=== PATIENT | female | born 1970 | race Caucasian/White ===

== ENCOUNTER 2019-05-02 09:43 | Inpatient (IN) | payer MEDICARE, BC ==
[~2019-05-02] VITALS: Ht 175.3 cm; Wt 101.0 kg
[~2019-05-02 09:43] MED LIST: ABAT250V SQ; ABATACEPT; ACET325 PO; AMLO5 PO; ASPI81EC PO; ATOR80 PO; Aspir 8181 MG PO; BYDUREON; BYDUREON SQ; DIAZ5 PO; DOCU100 PO; DRON5 PO; DULO60 PO; EXEN10PI SQ; EZET10 PO; FLUC200 PO; FURO40 PO; HALO5 PO; HYDPAM25 PO; HYDPAM50 PO; INS50/50I SC; INSULANI SC; INSULANI SUBQ; ISOMON30 PO; Imdur-ER60 MG; LIDO5TP TOP; LISI5 PO; LORA1 PO; METF500 PO; METO100ER PO; METO50ER PO; METO5A PO; NICO21TP TOP; NITR.4TPA TOP; NITRSPRAY SL; OMEP20ER PO; ONDA4ODT MM; ORENCIA; OXYC10ER PO; OXYC10TA19 PO; OXYC15ER PO; OXYC30ER PO; POLY17UD PO; PRAV20 PO; PREG75 PO; PROM12.5S PR; RANO500T PO; SENN187 PO; TRAZ100 PO; VARE1 PO
[2019-05-02 10:59] LABS: BASOPHILS ABSOLUTE AUTO 0.19 K/mm3 (0.00-0.23); BASOPHILS PERCENT AUTO 1 % (0-2); EOSINOPHILS ABSOLUTE AUTO 0.15 K/mm3 (0.00-0.68); EOSINOPHILS PERCENT AUTO 1 % (0-6); Hematocrit 40.2 % (33.0-51.0); Hemoglobin 13.5 g/dL (11.5-16.0); IMMATURE GRAN ABSOLUTE AUTO 0.27 K/mm3 (0.00-0.10); IMMATURE GRAN PERCENT AUTO 2 % (0-1); LYMPHOCYTES ABSOLUTE AUTO 1.09 K/mm3 (0.84-5.20); LYMPHOCYTES PERCENT AUTO 6 % (21-46); MONOCYTES ABSOLUTE AUTO 0.94 K/mm3 (0.16-1.47); MONOCYTES PERCENT AUTO 6 % (4-13); Mean Corpuscular HGB 30.2 pg (26.0-34.0); Mean Corpuscular HGB Conc 33.6 g/dL (31.5-36.5); Mean Corpuscular Volume 90 fL (80-100); Mean Platelet Volume 10.8 fL (9.1-12.4); NEUTROPHILS ABSOLUTE AUTO 14.31 K/mm3 (1.96-9.15); NEUTROPHILS PERCENT AUTO 85 % (41-73); Platelet Count 399 K/mm3 (150-400); RDW Coefficient Variation 12.7 % (11.7-14.2); RDW Standard Deviation 42.5 fL (35.1-46.3); Red Blood Cell Count 4.47 M/mm3 (3.80-5.20); White Blood Cell Count 16.95 K/mm3 (4.00-11.30)
[2019-05-02] MEDS ORDERED: TOLT4 PO (11:32)
[2019-05-02] MEDS ORDERED: ACTIVE-Q200 MG PO (11:32)
[2019-05-02] MEDS ORDERED: Cartia Xt180 MG PO (11:33)
[2019-05-02] MEDS ORDERED: MORPHINE SULFAT15 M1 PO (11:34)
[2019-05-02] MEDS ORDERED: FUROSEMIDE20 MG PO (11:35)
[2019-05-02] MEDS ORDERED: Klor-Con 1010 MEQ PO (11:36)
[2019-05-02] MEDS ORDERED: Paxil20 MG PO (11:37)
[2019-05-02] MEDS ORDERED: HYDSUL200 PO (11:38)
[2019-05-02 11:48] LABS: Bun/Creatinine Ratio 26.7 (12.0-20.0); Creatinine, Blood 1.16 mg/dL (0.40-1.00); Potassium, Blood 5.8 mmol/L (3.5-5.5)
[2019-05-02 13:25] LABS: Source, Urine Clean Catch
[2019-05-02 13:28] LABS: Bilirubin, Urine Neg (Neg); Blood, Urine Neg (Neg); Glucose Qualitative, Urine 4+ (Neg); Ketones, Urine 2+ (Neg); Leukocyte Esterase, Urine Neg (Neg); Nitrite, Urine Neg (Neg); Protein, Urine Neg (Neg); Urobilinogen, Urine NORM (Normal)
[2019-05-02 13:36] LABS: Appearance, Urine Clear (Clear); Color, Urine Yellow (P-Yellow)
[2019-05-02 14:30] LABS: Glucose, Blood 563 mg/dL (70-99)
--- NOTE | 2019-05-02 17:39 | NUR ---
ADMISSION / SHIFT SUMMARY: REPORT RECEIVED FROM ROZINA YEPEZ IN ED. PT ARRIVED TO UNIT AT APPROX 1610. PT ABLE TO STAND & TX FROM GURNEY TO BED W/O DIFFICULTY. PT HYPOTENSIVE ON ARRIVAL, SBP 80s. STS BP "NORMAL" FOR HER. PT ON RA W/ O2 SATS > 92%. INSULIN DRIP INFUSING AT RATE OF 9.66 UNITS/HR ON ARRIVAL W/ RECENT CBG CHECK 314, TITRATED DOWN TO 5 UNITS/HR ON ARRIVAL TO UNIT. PT IS ABLE TO ROLL ONTO SIDE W/O DIFFICULTY, AREA OF SWELLING W/ SMALL CIRCULAR SHELLIE, APPEARS TO BE A BUG BITE, NOTED TO L LABIA & EXTENDING DOWN TO L BUTTOCKS & UP TO L GROIN. PT ON RA W/ O2 SATS > 92%. MONITOR SHOWS SR W/ HR 70s. PT CURRENTLY TOLERATING PO INTAKE OF ICE CHIPS. STS SHE DOES NOT TOLERATE LANTUS WELL & REFUSES DOSE. WILL NOTIFY HOSPITALIST, DR CESPEDES, & REQUEST DIFFERENT LONG-ACTING INSULIN. SHE ALSO STS THAT SHE HAS UNCONTROLLED N/V WHEN CBG < 200. PT CURRENTLY RESTING QUIETLY & DENIES NEEDS. WILL CONTINUE TO MONITOR & REPORT OFF TO ONCOMING RN.
--- NOTE | 2019-05-02 19:00 | NUR ---
REPORT BEDSIDE REPORT RECEIVED FROM ROZINA العراقي. PT RESTING IN BED, A&O X4, PARTICIPATING IN REPORT/CARE. INSULIN GGT @ 1U/HR VIA RT FA AND NS @ 200/HR INFUSING VIA LT FA. HEART RATE NSR PER MONITOR. PT STATES PAIN IS 8/10. NO REQUESTS AT THIS TIME. WILL CONTINUE TO MONITOR PT THIS SHIFT.
[2019-05-02 19:01] LABS: Calcium, Blood 8.2 mg/dL (8.5-10.1); Creatinine, Blood 1.24 mg/dL (0.40-1.00); Potassium, Blood 4.4 mmol/L (3.5-5.5)
[2019-05-02] MEDS ORDERED: VITAMIN D350 MCG PO (20:22)
[2019-05-03 03:44] LABS: BASOPHILS ABSOLUTE AUTO 0.12 K/mm3 (0.00-0.23); BASOPHILS PERCENT AUTO 1 % (0-2); EOSINOPHILS ABSOLUTE AUTO 0.19 K/mm3 (0.00-0.68); EOSINOPHILS PERCENT AUTO 2 % (0-6); Hematocrit 38.6 % (33.0-51.0); IMMATURE GRAN ABSOLUTE AUTO 0.21 K/mm3 (0.00-0.10); IMMATURE GRAN PERCENT AUTO 2 % (0-1); LYMPHOCYTES ABSOLUTE AUTO 1.37 K/mm3 (0.84-5.20); LYMPHOCYTES PERCENT AUTO 11 % (21-46); MONOCYTES ABSOLUTE AUTO 0.88 K/mm3 (0.16-1.47); MONOCYTES PERCENT AUTO 7 % (4-13); Mean Corpuscular HGB 30.3 pg (26.0-34.0); Mean Corpuscular HGB Conc 33.7 g/dL (31.5-36.5); Mean Corpuscular Volume 90 fL (80-100); Mean Platelet Volume 10.2 fL (9.1-12.4); NEUTROPHILS ABSOLUTE AUTO 9.79 K/mm3 (1.96-9.15); NEUTROPHILS PERCENT AUTO 78 % (41-73); Platelet Count 379 K/mm3 (150-400); RDW Coefficient Variation 12.9 % (11.7-14.2); RDW Standard Deviation 43.1 fL (35.1-46.3); Red Blood Cell Count 4.29 M/mm3 (3.80-5.20); White Blood Cell Count 12.56 K/mm3 (4.00-11.30)
[2019-05-03 03:58] LABS: Anion Gap 6 mmol/L (6-16); Blood Urea Nitrogen 27 mg/dL (8-24); Bun/Creatinine Ratio 28.8 (12.0-20.0); CO2, Blood 22 mmol/L (21-32); Calcium, Blood 8.3 mg/dL (8.5-10.1); Chloride, Blood 105 mmol/L (98-108); Creatinine, Blood 0.94 mg/dL (0.40-1.00); Glomerular Filtration Rate >60 (60-); Glucose, Blood 225 mg/dL (70-99); Potassium, Blood 4.4 mmol/L (3.5-5.5); Sodium, Blood 133 mmol/L (136-145)
--- NOTE | 2019-05-03 06:55 | NUR ---
shift summary PT RESTS IN BED THIS SHIFT, UP TO BSC X2 TO VOID. PT VOIDS 600cc X2 CONC JAY URINE. PT HAS ABSCESS TO LT LABIA/BUTTOCK WITH REDNESS, TENDERNESS, SWELLING THAT HAS ENLARGED TO TWICE THE SIZE AT BEGIN OF SHIFT. PT C/O PAIN 8-12/15 AND HAS BEEN GIVEN FENTANYL, TYLENOL, AND OXYCODONE. PT IS REQUESTING MS, ANTI INFLAMMATORY, AND NITRO. PT CONCERNED ABOUT B/P AND HR BEING HIGHER THAN HER USUAL. HR 80s, B/P UP FROM 86/45 TO SBP 120s. LUNGS REMAIN CLEAR, SAT >90%. BOWEL SOUNDS PRESENT, LITTLE APPETITE, DENIES N/V. BLOOD SUGARS BELOW 265 AND INSULIN DRIP STOPPED, MOD S/S USED X4HRS WITH BS CHECKS. NS INFUSING AT 100CC/HR VIA LT FA, AND SL TO RT FA. BEDSIDE REPORT GIVEN TO ROZINA العراقي.
--- NOTE | 2019-05-03 09:52 | NUR ---
PT C/O 810 PERINEAL PAIN THAT IS SL RELEAVED WTIH ICE BAG AND PRIOR PO PAIN MEDS. PT ALSO EXPRESING PAIN IN HER JOINTS FROM HX OF RHUMATOID ARTHRITIS AND PAIN WITH HOT FEET NOTED LAST FEW DAYS WELL. THERE IS A SMALL AREA OF SUPERFICIAL SKIN ABRADED ON THE RED AND SWOLLEN AREA WHERE PT HAS HAD THE ICE BAG. IV MEDS WERE GIVEN WITH EFFECTIVE PAIN RELIEF. PT AGREED TO BE NPO FOR POTENTIAL SURGICAL PROCEDURE IF PRN. PT VSS, AND ABX COMPLETING.
--- NOTE | 2019-05-03 10:11 | NUR ---
REPORT GIVEN TO RE HANDY AND WILL TRANSFER VIA BED FOR PT COMFORT. PT CURRENTLY RUNNNING BETWEEN -09/14.
[2019-05-04 05:29] LABS: EOSINOPHILS ABSOLUTE AUTO 0.02 K/mm3 (0.00-0.68); EOSINOPHILS PERCENT AUTO 0 % (0-6); Hematocrit 39.1 % (33.0-51.0); Hemoglobin 13.1 g/dL (11.5-16.0); IMMATURE GRAN PERCENT AUTO 5 % (0-1); LYMPHOCYTES ABSOLUTE AUTO 1.85 K/mm3 (0.84-5.20); LYMPHOCYTES PERCENT AUTO 10 % (21-46); MONOCYTES ABSOLUTE AUTO 1.53 K/mm3 (0.16-1.47); MONOCYTES PERCENT AUTO 8 % (4-13); Mean Corpuscular HGB 30.7 pg (26.0-34.0); Mean Corpuscular HGB Conc 33.5 g/dL (31.5-36.5); Mean Corpuscular Volume 92 fL (80-100); Mean Platelet Volume 10.4 fL (9.1-12.4); NEUTROPHILS ABSOLUTE AUTO 13.83 K/mm3 (1.96-9.15); NEUTROPHILS PERCENT AUTO 76 % (41-73); Platelet Count 474 K/mm3 (150-400); RDW Coefficient Variation 13.2 % (11.7-14.2); RDW Standard Deviation 44.6 fL (35.1-46.3); Red Blood Cell Count 4.27 M/mm3 (3.80-5.20); White Blood Cell Count 18.15 K/mm3 (4.00-11.30)
[2019-05-04 05:31] LABS: BASOPHILS ABSOLUTE AUTO 0.02 K/mm3 (0.00-0.23); BASOPHILS PERCENT AUTO 0 % (0-2)
[2019-05-04 05:46] LABS: Anion Gap 14 mmol/L (6-16); Blood Urea Nitrogen 23 mg/dL (8-24); Bun/Creatinine Ratio 30.5 (12.0-20.0); CO2, Blood 15 mmol/L (21-32); Calcium, Blood 8.4 mg/dL (8.5-10.1); Chloride, Blood 106 mmol/L (98-108); Creatinine, Blood 0.76 mg/dL (0.40-1.00); Glomerular Filtration Rate >60 (60-); Glucose, Blood 261 mg/dL (70-99); Potassium, Blood 4.7 mmol/L (3.5-5.5); Sodium, Blood 135 mmol/L (136-145)
--- NOTE | 2019-05-04 06:30 | NUR ---
SHIFT SUMMARY PT A/OX4 AND IND IN ROOM. LEFT LABIA/BUTTOCK AREA IS SWOLLEN, RED, AND DRAINING SMALL AMOUNTS OF GREEN/YELLOW FLUID; PERIPAD CHANGE PRN BY PT. IVF AND ABX ADMINISTERED PER ORDERS. PT REPORTS VOIDING WITHOUT DIFFICULTY. TOLERATED PO INTAKE UNTIL NPO AT MIDNIGHT. INSULIN COVERAGE REQUIRED Q4 T/O SHIFT, PER SLIDING SCALE ORDERS. PAIN MANAGED PER EMAR. PT STATES SHE SLEPT WELL DURING THE NIGHT AND IS CURRENRLT RESTING IN BED W/CALL LIGHT IN REACH. PLAN FOR SURGERY TODAY. WILL CONTINUE TO MONITOR AND GIVE BEDSIDE REPORT TO ONCOMING RN.
--- NOTE | 2019-05-04 11:59 | NUR ---
History, Chart, Medications and Allergies reviewed before start of procedure. Patient confirms NPO status and agrees with scheduled surgery. Lungs clear T/O to Auscultation. Pre-Op teaching done. Pt verbalizes understanding.
--- NOTE | 2019-05-04 12:35 | NUR ---
JUN HICKEY STUDENT HERE AT THE BEDSIDE TO OBTAIN CONSENT FROM PATIENT TO BE PRESENT IN OR.
--- NOTE | 2019-05-04 13:23 | NUR ---
05/04/19 1323 Supriya Rodrigez PT ON SCHEDULED ANTIBIOTICS
--- NOTE | 2019-05-04 15:13 | NUR ---
SHIFT SUMMARY PT A&OX4, VSS, CBGS REQ COVERAGE/Q4 MED SS, S/P I&D W/JENNIFER DRAIN W/SEROUS DRAINING, PAD & MADONNAS. AMB INDEPENDENT TO BRP. REINIER PO, DENIES N&V. VOIDING WELL. 18G IV RFA. PAIN MANAGED WITH 5 MG OXY AND 500 MG TYLENOL. WILL REPORT TO RANDEE MURPHY RN.
--- NOTE | 2019-05-04 22:59 | NUR ---
Blood Glucose: blood glucose at HS was 463. Samantha Araiza NP was notified and order to change sliding scale to high was obtained. lantus and coverage were given, see JUN. Recheck blood glucose Q4H.
--- NOTE | 2019-05-05 05:26 | NUR ---
SHIFT SUMMARY" PATIENT IS A&OX4, CONTINUES TO REPORT PAIN 8/10 IN JOINTS, HANDS, FEET AND SHOULDERS 8/10. OXYCODONE AND TYLENOL ARE EFFICTIVE FOR PAIN CONTROL WITH IV MORPHINE GIVEN ONCE FOR BREAKTHROUGH PAIN WITH GOOD EFFECT. UP TO THE BSC INDEPENANTLY TO VOID. PATIENT REPORTS CHANGING AISSATOU PAD X5 WITH DRAINAG SLOWING, VS ARE STABLE
--- NOTE | 2019-05-05 12:13 | NUR ---
DR. CALIX IN TO SEE PT. PLAN IS TO DC TODAY. NO IV OR PO ANTIBIOTICS NEEDED PER DR. CALIX. WILL NOT RESTART IV AT THIS TIME, AND PREPARE PT FOR SURGERY
--- NOTE | 2019-05-05 12:15 | NUR ---
DR. CALIX IN TO SEE PT AT THIS TIME. PLAN IS FOR DC TODAY. NO IV OR PO ANTIBIOTICS NEEDED PER DR. CALIX. WILL NOT RESTART IV AT THIS TIME AND PREPARE PT FOR DISCHARGE
[2019-05-05] MEDS ORDERED: Humalog100 UNIT/3 SC (15:16)
[2019-05-05] MEDS ORDERED: BASAGLAR K100 UNIT/1 SC (15:16)
--- NOTE | 2019-05-05 16:20 | NUR ---
DISCHARGE: INSTRUCTIONS GIVEN, PT MEDS FAXED TO PHARMACY. PT LEFT UNIT ON FOOT WITH MOTHER AT ABOUT 1530
== END 2019-05-05 15:34 | disposition home or self-care (01) | DRG 872 ==
LOC: ER 09:43 → SURS 15:14 → ICUW 15:14 → ICUE 15:14 → SURS 05-03 10:39
PROVIDERS: Emergency Medicine; Surgery; ADMIT Internal Medicine
PROC: 0W9N30Z Drainage of Female Perineum with Drainage Device, Percutaneous Approach (ICD-10-PCS; principal; 2019-05-04 11:45)
DX: A41.9 Sepsis, unspecified organism (principal); L02.215 Cutaneous abscess of perineum; L02.31 Cutaneous abscess of buttock; L03.315 Cellulitis of perineum; N75.1 Abscess of Bartholin's gland; E88.81 Metabolic syndrome and other insulin resistance; E66.9 Obesity, unspecified; G47.33 Obstructive sleep apnea (adult) (pediatric); M06.9 Rheumatoid arthritis, unspecified; E11.9 Type 2 diabetes mellitus without complications; I25.10 Atherosclerotic heart disease of native coronary artery without angina pectoris; E78.00 Pure hypercholesterolemia, unspecified; I11.0 Hypertensive heart disease with heart failure; I50.9 Heart failure, unspecified; F32.9 Major depressive disorder, single episode, unspecified; I25.2 Old myocardial infarction; M79.7 Fibromyalgia; Z95.1 Presence of aortocoronary bypass graft; F17.210 Nicotine dependence, cigarettes, uncomplicated; Z68.31 Body mass index [BMI] 31.0-31.9, adult
CPT/HCPCS: 36415; 72193; 76857; 80048; 80202; 81003; 81025; 82947; 83605; 85025; 87040; 87070; 87075; 87205; 90686; 93005; 93010; 96361; 96365-59; 96367; 96375-59; 99285-25; G0008; J0744; J1100; J1815; J1885; J2250; J2270; J2405; J2704; J2930; J3010; J3370; J7030; J7050; J7120; J7512; Q9967